=== PATIENT | female | born 1995 | race Two or more races ===

== ENCOUNTER 2020-05-31 08:00 | Outpatient (CLI) | payer MEDICAID ==
[2020-05-31 19:25] LABS: BACTERIAL VAGINOSIS DNA NEGATIVE (NEGATIVE); CANDIDA GLABRATA DNA NEGATIVE (NEGATIVE); CANDIDA GROUP DNA NEGATIVE (NEGATIVE); CANDIDA KRUSEI DNA NEGATIVE (NEGATIVE); TRICHOMONAS VAGINALIS DNA NEGATIVE (NEGATIVE)
[2020-05-31 21:04] LABS: CHLAMYDIA TRACHOMATIS DNA NEGATIVE (NEGATIVE); NEISSERIA GONORRHOEAE DNA NEGATIVE (NEGATIVE); TRICHOMONAS VAGINALIS DNA NEGATIVE (NEGATIVE)
== END 2020-05-31 23:59 ==
LOC: LAB.S 08:00
PROVIDERS: ATTEND Nurse Practitioner Obstetrics & Gynecology
DX: Z11.3 Encounter for screening for infections with a predominantly sexual mode of transmission (principal); N76.0 Acute vaginitis; N89.8 Other specified noninflammatory disorders of vagina
CPT/HCPCS: 87491; 87591; 87661; 87801

== ENCOUNTER 2020-06-07 16:19 | Outpatient (CLI) | payer MEDICAID ==
--- NOTE | 2020-06-08 10:04 | Ultrasound Report ---
PROCEDURE: Pelvic w/Transvaginal INDICATIONS: PELVIC PAIN TECHNIQUE: Real-time scanning was performed of the pelvic organs, with image documentation. Additional endovagi nal scanning was necessary due to incomplete visualization of the adnexal and endometrial structures by transabdominal scanning. COMPARISON: None. FINDINGS: Transabdominal scanning: Limited scanning through the kidneys shows no hydronephrosis. No pathologi c free abdominal or pelvic fluid. Endovaginal scanning: Uterus: Uterus is normal in size at 7 x 3.2 x 4.5 cm. The endometrium measures 8 mm in combined thi ckness. There is no uterine fibroid. Echogenic focus is noted within the endometrium. No definite in ternal vascularity is seen. Ovaries: Right ovary measures 3.4 x 1.2 x 3 cm in size. Left ovary measures 2.9 x 1.7 x 2.5 cm in si ze. Less than 12 follicles are seen in each ovary. Heterogeneous echogenicity focus in left ovary is seen measures approximately 1.7 x 1.1 x 1.2 cm in size and shows no definite internal vascularity. No rmal blood flow is seen in bilateral ovaries on color Doppler images. IMPRESSION: 1. Echogenic focus within endometrium measures 6 x 3 mm in size which may represent a polyp. Clinical correlation and follow-up ultrasound is recommended. 2. Possible resolving hemorrhagic cyst in left ovary, which can also be followed up with ultrasound. No evidence of ovarian torsion. No definite solid appearing ovarian lesion. Reviewed by: Terry Peterson MD on 06/08/2020 10:03 AM PST Approved by: Terry Peterson MD on 06/08/2020 10:03 AM PST Station ID: [id number]
== END 2020-06-07 16:20 | disposition home or self-care (01) ==
LOC: DI 16:19
PROVIDERS: ATTEND Nurse Practitioner Obstetrics & Gynecology
DX: R93.89 Abnormal findings on diagnostic imaging of other specified body structures (principal)

== ENCOUNTER 2020-06-09 14:45 | Outpatient (CLI) | payer MEDICAID ==
[2020-06-11 13:44] LABS: HEPATITIS C ANTIBODY NON-REACTIVE (NON-REACTIVE)
[2020-06-11 14:26] LABS: HIV AG/AB 4TH GEN NON-REACTIVE (NON-REACTIVE)
== END 2020-06-09 14:46 | disposition home or self-care (01) ==
LOC: LAB.S 14:45
PROVIDERS: ATTEND Nurse Practitioner Obstetrics & Gynecology
DX: Z11.3 Encounter for screening for infections with a predominantly sexual mode of transmission (principal)
CPT/HCPCS: 36415; 81599; 86592; 86695; 86696; 86803; 87350; 87389

== ENCOUNTER 2020-06-14 21:16 | Outpatient (CLI) | payer MEDICAID | END 2020-06-14 21:17 | disposition home or self-care (01) | LOC: COV 21:16 | PROVIDERS: ATTEND Family Medicine | DX: M79.10 Myalgia, unspecified site (principal); R53.83 Other fatigue; R07.0 Pain in throat; R19.7 Diarrhea, unspecified; J34.89 Other specified disorders of nose and nasal sinuses; R11.0 Nausea; Z20.822 Contact with and (suspected) exposure to COVID-19 ==

== ENCOUNTER 2020-06-21 08:00 | Outpatient (CLI) | payer MEDICAID ==
[2020-06-22 00:04] LABS: CANDIDA GROUP DNA NEGATIVE (NEGATIVE); CANDIDA KRUSEI DNA NEGATIVE (NEGATIVE); TRICHOMONAS VAGINALIS DNA NEGATIVE (NEGATIVE)
== END 2020-06-21 08:01 | disposition home or self-care (01) ==
LOC: LAB.R 08:00
PROVIDERS: ATTEND Registered Nurse
DX: N89.8 Other specified noninflammatory disorders of vagina (principal)
CPT/HCPCS: 81599; 87491; 87591; 87661; 87801

== ENCOUNTER 2020-08-04 15:08 | Outpatient (CLI) | payer MEDICAID ==
[2020-08-04 19:57] LABS: BASOPHILS # (AUTO) 0.1 10^3/uL (0.0-0.1); BASOPHILS % (AUTO) 0.9 %; EOSINOPHILS # (AUTO) 0.1 10^3/uL (0.0-0.7); EOSINOPHILS % (AUTO) 1.7 %; HGB - HEMOGLOBIN 12.6 g/dL (12.0-16.0); LYMPHOCYTES # (AUTO) 1.5 10^3/uL (1.5-3.5); LYMPHOCYTES % (AUTO) 22.7 %; MEAN CORPUSCULAR HEMOGLOBIN 32.1 pg (27.0-31.0); MEAN CORPUSCULAR HGB CONC 33.1 g/dL (32.0-36.0); MEAN CORPUSCULAR VOLUME 96.9 fL (81.0-99.0); MEAN PLATELET VOLUME 10.6 fL (7.9-10.8); MONOCYTES # (AUTO) 0.7 10^3/uL (0.0-1.0); MONOCYTES % (AUTO) 10.7 %; NEUTROPHILS # (AUTO) 4.2 10^3/uL (1.5-6.6); NEUTROPHILS % (AUTO) 63.8 %; PLT - PLATELET COUNT 258 10^3/uL (130-450); RED BLOOD COUNT 3.93 10^6/uL (4.20-5.40); RED CELL DISTRIBUTION WIDTH 13.1 % (12.0-15.0); WHITE BLOOD COUNT 6.5 x10^3/uL (4.8-10.8)
[2020-08-04 20:20] LABS: ALBUMIN 4.4 g/dL (3.2-5.5); ALBUMIN/GLOBULIN RATIO 1.5 (1.0-2.2); BILIRUBIN,TOTAL 0.9 mg/dL (0.2-1.0); CALCIUM 9.1 mg/dL (8.5-10.3); CREATININE 0.8 mg/dL (0.4-1.0); TOTAL PROTEIN 7.4 g/dL (6.7-8.2)
== END 2020-08-04 15:09 | disposition home or self-care (01) ==
LOC: LAB.S 15:08
PROVIDERS: ATTEND Nurse Practitioner Obstetrics & Gynecology
DX: R10.2 Pelvic and perineal pain (principal); J45.20 Mild intermittent asthma, uncomplicated
CPT/HCPCS: 36415; 80053; 84443; 85025

== ENCOUNTER 2020-10-12 08:00 | Outpatient (CLI) | payer MEDICAID | END 2020-10-12 23:59 | disposition home or self-care (01) | LOC: LAB.S 08:00 | PROVIDERS: ATTEND Physician Assistant Medical | DX: R31.9 Hematuria, unspecified (principal); R30.0 Dysuria | CPT/HCPCS: 87086 ==

== ENCOUNTER 2021-07-10 09:32 | Emergency (ER) | payer MEDICAID ==
--- NOTE | 2021-07-10 10:37 | ED Physician Documentation ---
History of Present Illness - Stated complaint Stated Complaint: BODY PX/FEELING UNWELL - Chief complaint Chief Complaint: General - History obtained from History obtained from: Patient - Additonal information Additional information: Patient comes emergency department chief complaint of body aches, sore throat, tiredness, decreased appetite, and increased size of a chronic lump in her right axilla. Symptoms started a couple of days ago. Patient states the lump fluctuates in size, but is usually small. However, recently, it swelled up quite a bit larger and was painful. However, it shrank down again yesterday. The patient has not had any known sick contacts. She was vaccinated for Covid fully last year. Review of Systems Ten Systems: 10 systems reviewed and negative Constitutional: reports: Reviewed and negative Eyes: reports: Reviewed and negative Ears: reports: Reviewed and negative Nose: reports: Reviewed and negative Throat: reports: Reviewed and negative Cardiac: reports: Reviewed and negative Respiratory: reports: Reviewed and negative GI: reports: Reviewed and negative : reports: Reviewed and negative Skin: reports: Reviewed and negative Musculoskeletal: reports: Reviewed and negative Neurologic: reports: Reviewed and negative Psychiatric: reports: Reviewed and negative Endocrine: reports: Reviewed and negative Immunocompromised: reports: Reviewed and negative PD PAST MEDICAL HISTORY - Allergies Allergies/Adverse Reactions: Allergies Allergy/AdvReac Type Severity Reaction Status Date / Time gluten Allergy Unknown Verified 07/10/21 09:43 PD ED PE NORMAL - Vitals Vital signs reviewed: Yes - General General: Alert and oriented X 3, No acute distress, Well developed/nourished - HEENT HEENT: Atraumatic, PERRL, EOMI, Moist mucous membranes, Pharynx benign - Neck Neck: Supple, no meningeal sign, No adenopathy - Cardiac Cardiac: RRR, No murmur - Respiratory Respiratory: No respiratory distress, Clear bilaterally - Abdomen Abdomen: Soft, Non tender, Non distended - Derm Derm: Normal color, Warm and dry, No rash, Other (1.5 cm mobile, fluctuant cyst the anterior aspect of the patient's right axilla. No erythema or induration. No drainage.) - Extremities Extremities: No deformity - Neuro Neuro: Alert and oriented X 3 - Psych Psych: Normal mood, Normal affect Results - Vitals Vitals: Vital Signs - 24 hr 07/10/21 07/10/21 09:40 10:49 Temperature 36.9 C 36.8 C Heart Rate 88 75 Respiratory 16 16 Rate Blood Pressure 116/71 125/78 O2 Saturation 98 100 Oxygen O2 Source Room air - Labs Labs: Laboratory Tests 07/10/21 10:02 Nasal Adenovirus (PCR) NOT DETECTED Nasal B. parapertussis DNA (PCR) NOT DETECTED Nasal Coronavir 229E PCR NOT DETECTED Nasal Coronavir HKU1 PCR NOT DETECTED Nasal Coronavir NL63 PCR NOT DETECTED Nasal Coronavir OC43 PCR NOT DETECTED Nasal Enterovir/Rhinovir PCR NOT DETECTED Nasal Influenza B PCR NOT DETECTED Nasal Influenza A PCR NOT DETECTED Nasal Parainfluen 1 PCR NOT DETECTED Nasal Parainfluen 2 PCR NOT DETECTED Nasal Parainfluen 3 PCR NOT DETECTED Nasal Parainfluen 4 PCR NOT DETECTED Nasal RSV (PCR) NOT DETECTED Nasal B.pertussis DNA PCR NOT DETECTED Nasal C.pneumoniae (PCR) NOT DETECTED Benoit Human Metapneumo PCR NOT DETECTED Nasal M.pneumoniae (PCR) NOT DETECTED Nasal SARS-CoV-2 (PCR) DETECTED A PD MEDICAL DECISION MAKING - ED course Complexity details: reviewed results, re-evaluated patient, considered differential, d/w patient ED course: I discussed with the patient that her cyst does not appear infected and that It is mobile and does not feel like a malignant mass. The patient's other symptoms are indicative of a viral illness, and I have sent a respiratory PCR on the patient. At this point in time the PCR is pending. I have advised the patient that we will call her at home if she is positive for Covid. We discussed the usual indications for return. Update: After the patient left the emergency department, her respiratory PCR did come back positive for Covid. She has been notified. Departure - Departure Disposition: 01 Home, Self Care Clinical Impression: Viral syndrome, Subcutaneous cyst Condition: Stable Instructions: ED Cyst Sebaceous, ED Viral Syndrome Comments: The lump under your armpit is benign, and does not show any evidence of being cancerous or infected. It is most likely unrelated to the viral symptoms you are experiencing with the sore throat, body aches, fever, and congestion. You most likely have one of the many viruses that commonly go around this time of year. A viral panel is pending at this time. You will be called if your Covid results come back positive. However, we do not call back negative tests, so the best way to keep tabs on your results is to go to the hospital website at [email or web address], click on the "my [email or web address]" tab, and sign up for the patient portal, where you can review your results. Please continue to eat healthy food, drink plenty of water, and take ibuprofen and/or Tylenol as needed for discomfort. Discharge Date/Time: 07/10/21 10:50
[2021-07-10 10:51] VITALS: BP 125/78
[2021-07-10 11:07] LABS: CORONAVIRUS 229E-RESP PCR NOT DETECTED; CORONAVIRUS HKU1-RESP PCR NOT DETECTED; CORONAVIRUS NL63-RESP PCR NOT DETECTED; CORONAVIRUS OC43-RESP PCR NOT DETECTED
[2021-07-10 11:09] LABS: B. PARAPERTUSSIS- RESP PCR PAN NOT DETECTED; B. PERTUSSIS- RESP PCR PANEL NOT DETECTED; C. PNEUMONIAE- RESP PCR PANEL NOT DETECTED; HUMAN METAPNEUMOVIRUS NOT DETECTED; INFLUENZA A- RESP PCR PANEL NOT DETECTED; INFLUENZA B - RESP PCR PANEL NOT DETECTED; M. PNEUMONIAE- RESP PCR PANEL NOT DETECTED; PARAINFLUENZA VIRUS 1 NOT DETECTED; PARAINFLUENZA VIRUS 2 NOT DETECTED; PARAINFLUENZA VIRUS 3 NOT DETECTED; PARAINFLUENZA VIRUS 4 NOT DETECTED; RHINOVIRUS/ENTEROVIRUS NOT DETECTED; RSV- RESP PCR PANEL NOT DETECTED; SARS-CoV-2 -RESP PCR PANEL DETECTED
== END 2021-07-10 10:50 | disposition home or self-care (01) ==
LOC: ED 09:32
DX: U07.1 COVID-19 (principal); L72.9 Follicular cyst of the skin and subcutaneous tissue, unspecified
CPT/HCPCS: 0202U; 99282; 99283

== ENCOUNTER 2021-10-24 15:10 | Outpatient (CLI) | payer MEDICAID ==
[2021-10-24 20:38] LABS: BILIRUBIN,URINE NEGATIVE (NEGATIVE); GLUCOSE, URINE (UA) NEGATIVE (NEGATIVE); KETONES,URINE (UA) NEGATIVE (NEGATIVE); LEUKOCYTE ESTERASE, URINE NEGATIVE (NEGATIVE); NITRITE,URINE NEGATIVE (NEGATIVE); OCCULT BLOOD,URINE MODERATE (NEGATIVE); PH,URINE 6.5 PH (5.0-7.5); PROTEIN,URINE NEGATIVE (NEGATIVE); UROBILINOGEN,URINE 0.2 (NORMAL) E.U./dL (NORMAL)
[2021-10-24 20:46] LABS: CLARITY,URINE CLEAR (CLEAR)
[2021-10-24 20:47] LABS: BACTERIA,URINE Few /HPF (None Seen); SQUAMOUS EPITHELIAL CELL,UR FEW Squamous (<= Few); WBC,URINE 0-3 /HPF (0-5)
[2021-10-24 22:50] LABS: BACTERIAL VAGINOSIS DNA NEGATIVE (NEGATIVE); CANDIDA GLABRATA DNA NEGATIVE (NEGATIVE); CANDIDA GROUP DNA POSITIVE (NEGATIVE); CANDIDA KRUSEI DNA NEGATIVE (NEGATIVE); TRICHOMONAS VAGINALIS DNA NEGATIVE (NEGATIVE)
[2021-10-25 01:12] LABS: CHLAMYDIA TRACHOMATIS DNA NEGATIVE (NEGATIVE); NEISSERIA GONORRHOEAE DNA NEGATIVE (NEGATIVE)
[2021-10-26 06:11] LABS: HCV AB <0.1 s/co ratio (0.0-0.9)
[2021-10-26 07:10] LABS: RPR Non Reactive (Non Reactive)
== END 2021-10-24 23:59 | disposition home or self-care (01) ==
LOC: LAB.S 15:10
PROVIDERS: ATTEND Physician Assistant Medical
DX: R35.0 Frequency of micturition (principal); R30.0 Dysuria; N76.0 Acute vaginitis; Z11.3 Encounter for screening for infections with a predominantly sexual mode of transmission
CPT/HCPCS: 36415; 81001; 81514; 81599; 86592; 86803; 87086; 87491; 87536; 87591; 87661

== ENCOUNTER 2022-02-08 14:34 | Outpatient (CLI) | payer MEDICAID ==
--- NOTE | 2022-02-09 15:43 | Ultrasound Report ---
PROCEDURE: Pelvic w/Transvaginal INDICATIONS: PELVIC PAIN, OVERIAN CYST TECHNIQUE: Real-time scanning was performed of the pelvic organs, with image documentation. Additional endovagi nal scanning was necessary due to incomplete visualization of the adnexal and endometrial structures by transabdominal scanning. COMPARISON: 06/07/2020 FINDINGS: Uterus: The uterus measures 7.7 x 3.6 x 3.8 cm, for a volume of 55 cc. Uterus is anteverted. Homogeno us echotexture. Endometrium within normal limits for age measuring 6 mm. Ovaries: Right ovary volume is 8 cc. Left ovarian volume is 7 cc. Ovaries within normal limits. Other: No pathologic free abdominal or pelvic fluid. IMPRESSION: Normal pelvic ultrasound for age. Reviewed by: Darci Nichols MD on 02/09/2022 3:41 PM PDT Approved by: Darci Nichols MD on 02/09/2022 3:41 PM PDT Station ID: [id number]
== END 2022-02-08 14:35 | disposition home or self-care (01) ==
LOC: DI 14:34
PROVIDERS: ATTEND Nurse Practitioner
DX: R10.2 Pelvic and perineal pain (principal)

== ENCOUNTER 2022-02-19 09:54 | Emergency (ER) | payer MEDICAID ==
[2022-02-19 10:25] VITALS: BP 111/61
--- NOTE | 2022-02-19 12:14 | ED Physician Documentation ---
PD HPI BACK PAIN - Stated complaint Stated Complaint: BACK PX - Chief complaint Chief Complaint: Back Pain - History obtained from History obtained from: Patient - Additional information Additional information: 26-year-old woman with history of ovarian cyst presents with 2 days of low back pain. Says she was lifting a table and developed some pain in the right low back which subsequently spread to both sides of the back. It is worse with bending, twisting, or other position changes. It is present at rest but mild. She has tried CBD for it without significant relief. Has not tried any other pain medications. Has tried heat. She denies weakness, numbness, tingling, saddle anesthesia, incontinence, or fevers. No possibility of . Review of Systems Constitutional: denies: Fever, Chills Throat: reports: Reviewed and negative Cardiac: reports: Reviewed and negative Respiratory: reports: Reviewed and negative PD PAST MEDICAL HISTORY - Present Medications Home Medications: Ambulatory Orders Medication Instructions Recorded Confirmed Cyclobenzaprine [Flexeril] 10 mg PO TID PRN 6 Days #20 tablet 02/19/22 Escitalopram [Lexapro] 10 mg PO DAILY 02/19/22 02/19/22 Ibuprofen [Motrin] 600 mg PO Q6H PRN #30 tab 02/19/22 - Allergies Allergies/Adverse Reactions: Allergies Allergy/AdvReac Type Severity Reaction Status Date / Time gluten Allergy Unknown Verified 07/10/21 09:43 PD ED PE NORMAL - Vitals Vital signs reviewed: Yes - General General: Alert and oriented X 3, No acute distress, Other (She is comfortable at rest but winces a bit with motion, but she is able to sit up unassisted, move around etc.) - Back Back: No spinal TTP - Extremities Extremities: Other (The patient has equal and normal Achilles and patellar reflexes bilaterally. Normal sensation in all areas of the legs. Patient denies saddle anesthesia. Normal strength in flexion-extension at the ankles, knees, and flexion of the hips.) - Neuro Neuro: Alert and oriented X 3, Normal speech Results - Vitals Vitals: Vital Signs - 24 hr 02/19/22 10:23 Temperature 37.2 C Heart Rate 87 Respiratory 19 Rate Blood Pressure 111/61 O2 Saturation 99 Oxygen O2 Source Room air PD MEDICAL DECISION MAKING - ED course ED course: This patient has seemingly uncomplicated musculoskeletal back pain. The patient has no "red flags." Specifically denies IV drug use, fevers, incontinence, saddle anesthesia. Spinal epidural abscess was considered, given that the patient has no fever, is not diabetic, has no spinal tenderness, does not use IV drugs, and has no bilateral neurologic symptoms, the diagnosis of spinal epidural abscess is considered exceedingly unlikely. Departure - Departure Disposition: Home, Self Care Clinical Impression: Lumbago Condition: Good Record reviewed to determine appropriate education?: Yes Instructions: ED Back Care Tips, ED Spasm Back No Trauma Prescriptions: Cyclobenzaprine [Flexeril] 10 mg PO TID PRN 6 Days #20 tablet PRN Reason: Spasms Ibuprofen [Motrin] 600 mg PO Q6H PRN #30 tab PRN Reason: Pain Comments: I expect you to improve fairly quickly over the next few days. Return for new or worsening symptoms, do not drink or drive while taking prescription muscle relaxer. Plan a follow-up visit with your primary care physician in about a week for recheck as well. Forms: Activity restrictions
== END 2022-02-19 12:35 | disposition home or self-care (01) ==
LOC: ED 09:54
DX: M54.50 Low back pain, unspecified (principal)
CPT/HCPCS: 99282

== ENCOUNTER 2022-05-12 16:02 | Emergency (ER) | payer MEDICAID ==
[2022-05-12 16:39] VITALS: BP 131/83
--- NOTE | 2022-05-12 18:40 | ED Physician Documentation ---
PD HPI FEMALE - Stated complaint Stated Complaint: FEVER/THROAT PX/NOSE DRY - Chief complaint Chief Complaint: Abd Pain - History obtained from History obtained from: Patient - History of Present Illness Timing - onset: How many days ago (3-4) Timing - duration: Days Timing - details: Gradual onset, Still present Associated symptoms: Fever (she has had uRI symptoms of congestion, sorethroat, cough and fevers. Also noting 2-3 days of odorous vaginal itching and discharge similar to prior BV. Denies exposure to STDs. No recent abx.) Contributing factors: Sexually active. No: Exposed to STD Similar symptoms before: Diagnosis (has had BV in the past.) Recently seen: Not recently seen Review of Systems Constitutional: reports: Fever, Chills, Myalgias Nose: reports: Rhinorrhea / runny nose Throat: reports: Sore throat Respiratory: reports: Cough GI: denies: Vomiting, Diarrhea : denies: Dysuria Skin: denies: Rash PD PAST MEDICAL HISTORY - Past Medical History Cardiovascular: None Respiratory: Asthma (with some exacerbation with current uRI symptoms. ) Neuro: None Endocrine/Autoimmune: None - Present Medications Home Medications: Ambulatory Orders Medication Instructions Recorded Confirmed Cyclobenzaprine [Flexeril] 10 mg PO TID PRN 6 Days #20 tablet 02/19/22 Escitalopram [Lexapro] 10 mg PO DAILY 02/19/22 02/19/22 Ibuprofen [Motrin] 600 mg PO Q6H PRN #30 tab 02/19/22 Albuterol Sulf [Ventolin Hfa 1 - 2 puffs INH Q4HR PRN #1 each 05/12/22 Inhaler] metroNIDAZOLE 0.75% GEL [Flagyl 1 applic TOP DAILY 5 Days #45 gm 05/12/22 Gel] Fluconazole [Diflucan] 150 mg PO Q3D #2 tablet 05/13/22 - Allergies Allergies/Adverse Reactions: Allergies Allergy/AdvReac Type Severity Reaction Status Date / Time gluten Allergy Unknown Verified 05/12/22 16:39 PD ED PE NORMAL - Vitals Vital signs reviewed: Yes - General General: Alert and oriented X 3, No acute distress, Well developed/nourished - HEENT HEENT: Ears normal, Pharynx benign - Neck Neck: Supple, no meningeal sign, Other (mild left anterior adenopathy of neck. ) - Cardiac Cardiac: RRR, No murmur - Respiratory Respiratory: Clear bilaterally - Abdomen Abdomen: Soft, Non tender - Female Female : Deferred (will have patient self-swab. ) - Rectal Rectal: Deferred - Back Back: No CVA TTP - Derm Derm: Normal color Results - Vitals Vitals: Vital Signs - 24 hr 05/12/22 16:35 Temperature 37.8 C Heart Rate 81 Respiratory 16 Rate Blood Pressure 131/83 H O2 Saturation 98 Oxygen O2 Source Room air - Labs Labs: Laboratory Tests 05/12/22 05/12/22 16:40 19:06 Nasal Adenovirus (PCR) NOT DETECTED Nasal B. parapertussis DNA (PCR) NOT DETECTED Nasal Coronavir 229E PCR NOT DETECTED Nasal Coronavir HKU1 PCR NOT DETECTED Nasal Coronavir NL63 PCR NOT DETECTED Nasal Coronavir OC43 PCR NOT DETECTED Nasal Enterovir/Rhinovir PCR NOT DETECTED Nasal Influenza A H3 PCR DETECTED A Nasal Influenza B PCR NOT DETECTED Nasal Parainfluen 1 PCR NOT DETECTED Nasal Parainfluen 2 PCR NOT DETECTED Nasal Parainfluen 3 PCR NOT DETECTED Nasal Parainfluen 4 PCR NOT DETECTED Nasal RSV (PCR) NOT DETECTED Nasal B.pertussis DNA PCR NOT DETECTED Nasal C.pneumoniae (PCR) NOT DETECTED Benoit Human Metapneumo PCR NOT DETECTED Nasal M.pneumoniae (PCR) NOT DETECTED Nasal SARS-CoV-2 (PCR) NOT DETECTED C. glabrata (PCR) POSITIVE A C. krusei (PCR) NEGATIVE Breonna species DNA POSITIVE A T. vaginalis (PCR) NEGATIVE Bact Vaginosis (PCR) POSITIVE A PD MEDICAL DECISION MAKING - ED course Complexity details: reviewed results (Flu A test result prior to discharge. BV screen will be 2-3 hours in lab, so will call pt later with results and presume BV most likely. ), considered differential, d/w patient Departure - Departure Disposition: 01 Home, Self Care Clinical Impression: Influenza A Vaginitis Qualifiers: Chronicity: acute Qualified Code(s): N76.0 - Acute vaginitis Asthma Qualifiers: Asthma severity: mild Asthma persistence: intermittent Asthma complication type: with acute exacerbation Qualified Code(s): J45.21 - Mild intermittent asthma with (acute) exacerbation Condition: Stable Record reviewed to determine appropriate education?: Yes Instructions: ED Flu, ED Vaginosis Bacterial Prescriptions: Albuterol Sulf [Ventolin Hfa Inhaler] 1 - 2 puffs INH Q4HR PRN #1 each PRN Reason: Shortness Of Air/Wheezing metroNIDAZOLE 0.75% GEL [Flagyl Gel] 1 applic TOP DAILY 5 Days #45 gm Comments: Your nasal swab viral PCR test is positive for influenza A. This would account for the majority of your symptoms. Stay well-hydrated and presume you will have aches and fevers regularly over the next several days still. Tylenol every 4-6 hours regularly would be most preemptive and help with symptoms. Stay well-hydrated as I said. Use your albuterol inhaler as needed for wheezing and trouble breathing. Your vaginitis vaginal test will result in few hours. It does sound likely to be bacterial vaginitis and so I sent a prescription for metronidazole vaginal gel to the [facility] in [place] along with a prescription for your albuterol inhaler. I will follow-up on the vaginitis test later this evening and add any medication that may be appropriate such as if there is yeast as well. Recheck if not fully improved over the next 5 or 6 days. Discharge Date/Time: 05/12/22 19:20
[2022-05-12 18:44] LABS: B. PARAPERTUSSIS- RESP PCR PAN NOT DETECTED; B. PERTUSSIS- RESP PCR PANEL NOT DETECTED; C. PNEUMONIAE- RESP PCR PANEL NOT DETECTED; CORONAVIRUS 229E-RESP PCR NOT DETECTED; CORONAVIRUS HKU1-RESP PCR NOT DETECTED; CORONAVIRUS NL63-RESP PCR NOT DETECTED; CORONAVIRUS OC43-RESP PCR NOT DETECTED; HUMAN METAPNEUMOVIRUS NOT DETECTED; INFLUENZA A H3- RESP PCR PANEL DETECTED; INFLUENZA B - RESP PCR PANEL NOT DETECTED; M. PNEUMONIAE- RESP PCR PANEL NOT DETECTED; PARAINFLUENZA VIRUS 1 NOT DETECTED; PARAINFLUENZA VIRUS 2 NOT DETECTED; PARAINFLUENZA VIRUS 3 NOT DETECTED; PARAINFLUENZA VIRUS 4 NOT DETECTED; RHINOVIRUS/ENTEROVIRUS NOT DETECTED; RSV- RESP PCR PANEL NOT DETECTED; SARS-CoV-2 -RESP PCR PANEL NOT DETECTED
[2022-05-12] MEDS ORDERED: ACETAMINOPHEN 325 MG TABLET PO STA (18:55)
[2022-05-12 21:05] LABS: BACTERIAL VAGINOSIS DNA POSITIVE (NEGATIVE); CANDIDA GLABRATA DNA POSITIVE (NEGATIVE); CANDIDA GROUP DNA POSITIVE (NEGATIVE); CANDIDA KRUSEI DNA NEGATIVE (NEGATIVE); TRICHOMONAS VAGINALIS DNA NEGATIVE (NEGATIVE)
== END 2022-05-12 19:20 | disposition home or self-care (01) ==
LOC: ED 16:02
DX: J10.1 Influenza due to other identified influenza virus with other respiratory manifestations (principal); N76.0 Acute vaginitis; J45.21 Mild intermittent asthma with (acute) exacerbation; Z20.822 Contact with and (suspected) exposure to COVID-19
CPT/HCPCS: 81514; 87633; 99283; A9270

== ENCOUNTER 2022-11-22 11:24 | Outpatient (CLI) | payer MEDICAID ==
--- NOTE | 2022-11-22 16:29 | XRAY Report ---
PROCEDURE: Chest 2 View X-Ray INDICATIONS: RIB PAIN LT SIDE TECHNIQUE: 2 views of the chest were acquired. COMPARISON: None. FINDINGS: Surgical changes and devices: None. Lungs and pleura: No pleural effusions or pneumothorax. Lungs are clear. Mediastinum: Mediastinal contours appear normal. Heart size is normal. Bones and chest wall: No suspicious bony lesions. Overlying soft tissues appear unremarkable. IMPRESSION: No acute process. Reviewed by: Dylan Alejandre MD on 11/22/2022 4:27 PM PDT Approved by: yDlan Alejandre MD on 11/22/2022 4:27 PM PDT Station ID: [id number]
== END 2022-11-22 11:25 | disposition home or self-care (01) ==
LOC: DI 11:24
PROVIDERS: ATTEND Nurse Practitioner
DX: R07.81 Pleurodynia (principal)